=== PATIENT | female | born 1980 | race Caucasian/White ===

== ENCOUNTER 2018-04-29 13:04 | Emergency (ER) | payer BC ==
[2018-04-29] MEDS ORDERED: NS 1,000 ML IV ONE (13:37)
--- NOTE | 2018-04-29 14:02 | CPEKG ---
Heart Rate: 65 RR Interval: 923 P-R Interval: 152 QRSD Interval: 84 QT Interval: 432 QTC Interval: 450 P Cyril: 45 QRS Cyril: 82 T Wave Cyril: 53 EKG Severity - NORMAL ECG - EKG Impression: SINUS RHYTHM Electronically Signed By: Brandon Gruber 02-May-2018 06:55:00
[2018-04-29 14:19] LABS: PLATELET COUNT 272 10^3/uL (150-400)
--- NOTE | 2018-04-29 14:27 | EDPHY ---
H & P Stated Complaint: PROB WITH L EYE(PUPIL ENLARGED )LAST WEEK/[place]/WEAKNESS TODAY Time Seen by Provider: 04/29/18 13:37 HPI/ROS: CHIEF COMPLAINT: Headache, dizziness HISTORY OF PRESENT ILLNESS: 37-year-old previously healthy female presents with headache and dizziness. 1 week ago, she had unequal pupils and left eyelid swelling and was seen in urgent care and by seasonal tax preparer. Eye exam was normal and the unequal pupils were thought secondary to Benadryl. Early this morning, she awoke suddenly because of a sound. She developed flashing lights in her eyes, followed by a headache. The headache was generalized and moderate. She took ibuprofen 800 mg orally and went back to sleep. This morning, she had a persistent headache, and then had a near syncopal episode while walking. She feels dizzy with ambulation, like she might faint. She also has a 6/10 headache. This is not the worst headache ever. She has had much more severe headaches and is currently on a waiting list to be seen at [facility] for headaches. No prior neuro imaging. No recent illness and no recent head injury or chiropractic manipulation. REVIEW OF SYSTEMS: complete 10 point ROS negative except at noted in the HPI - Personal History LMP (Females 10-55): Now Current Tetanus/Diphtheria Vaccine: Yes - Medical/Surgical History Hx Asthma: No Hx Chronic Respiratory Disease: No Hx Diabetes: No Hx Cardiac Disease: No Hx Renal Disease: No Hx Cirrhosis: No Hx Alcoholism: No Hx HIV/AIDS: No Hx Splenectomy or Spleen Trauma: No Other PMH: MIGRAINES (NEVER HAD CT) - Family History Significant Family History: Other (Sister had Hodgkin's disease. No family history of aneurysm or brain tumor) - Social History Smoking Status: Never smoked Alcohol Use: Rarely Drug Use: None Additional Social History: - Physical Exam Exam: General Appearance: Alert, pleasant Eyes: Left pupil 4 mm, right pupil 3 mm, both reactive to light, no conjunctival pallor or injection, EOMI, few beats of horizontal nystagmus with leftward gaze ENT, Mouth: Mucous membranes moist Neck: Normal inspection Respiratory: Lungs are clear to auscultation Cardiovascular: Regular rate and rhythm Gastrointestinal: Abdomen is soft and nontender Neurological: Alert, oriented x3, cranial nerves II through XII intact except for anisocoria, motor 5/5, sensory intact to light touch, dizzy with ambulation Skin: Warm and dry, no rash Extremities: Nontender, no pedal edema Psychiatric: Mood and affect normal Constitutional: Initial Vital Signs Temperature (C) 36.8 C 04/29/18 13:11 Heart Rate 67 04/29/18 13:11 Respiratory Rate 18 04/29/18 13:11 Blood Pressure 119/90 H 04/29/18 13:11 O2 Sat (%) 99 04/29/18 13:11 O2 Delivery Mode Room Air Allergies/Adverse Reactions: No Known Allergies Allergy (Unverified 04/29/18 13:10) Home Medications: Medication Instructions Recorded NK [No Known Home Meds] 04/29/18 Medical Decision Making - Diagnostics Imaging Results: Imaging Impressions Head CT 04/29/18 14:23 Impression: 1. No significant intracranial abnormality seen. The patient is also scheduled for CT angiographic procedure. Head CTA 04/29/18 14:23 Impression: 1. Normal CT angiogram of the neck. 2. Normal CT angiogram of the [place], as detailed above. Note: All calculations were performed using NASCET criteria. Findings discussed with Izabela Hoyos M.D. at 15:43 hour, 04/29/2018. Neck CTA 04/29/18 14:[address]: [address] angiogram of the neck. 2. Normal CT angiogram of the [place], as detailed above. Note: All calculations were performed using NASCET criteria. Findings discussed with Izabela Hoyos M.D. at 15:43 hour, 04/29/2018. Brain MRI 04/29/18 15:48 Impression: Normal MRI of the brain without contrast. ED Course/Re-evaluation: This patient presents with headache, unequal pupils and dizziness. Unclear if this is an atypical migraine headache or more concerning diagnosis such as dissection or aneurysm. CT/CTA of the head and neck ordered and fortunately are unremarkable. Prior to CT scan, the patient received Reglan, Benadryl and Decadron IV. CT scan results discussed with the patient. She currently feels better. She only has a slight headache and the dizziness is mainly resolved. MRI of the brain ordered. If this test is normal, I will plan to discharge the patient home with Neurology follow-up. MRI of the brain is unremarkable. Results discussed with the patient and her . Currently feels much better. Neurologic exam is unchanged. Will discharge home with Neurology follow-up as an outpatient. Differential Diagnosis: Headache including but not limited to subarachnoid hemorrhage, migraine headache , tension headache and infectious causes such as meningitis, pharyngitis and sinusitis. - Data Points Laboratory Results: Laboratory Results 04/29/18 14:03 04/29/18 14:03 04/29/18 04/29/18 04/29/18 14:03 14:03 14:03 WBC 6.56 10^3/uL 10^3/uL (3.80-9.50) RBC 4.81 10^6/uL 10^6/uL (4.18-5.33) Hgb 15.4 g/dL g/dL (12.6-16.3) Hct 44.9 % % (38.0-47.0) MCV 93.3 fL fL (81.5-99.8) MCH 32.0 pg pg (27.9-34.1) MCHC 34.3 g/dL g/dL (32.4-36.7) RDW 11.9 % % (11.5-15.2) Plt Count 272 10^3/uL 10^3/uL (150-400) MPV 9.3 fL fL (8.7-11.7) Neut % (Auto) 64.0 % % (39.3-74.2) Lymph % (Auto) 25.8 % % (15.0-45.0) [place] % (Auto) 8.2 % % (4.5-13.0) Eos % (Auto) 1.2 % % (0.6-7.6) Baso % (Auto) 0.5 % % (0.3-1.7) Nucleat RBC Rel Count 0.0 % % (0.0-0.2) Absolute Neuts (auto) 4.20 10^3/uL 10^3/uL (1.70-6.50) Absolute Lymphs (auto) 1.69 10^3/uL 10^3/uL (1.00-3.00) Absolute Monos (auto) 0.54 10^3/uL 10^3/uL (0.30-0.80) Absolute Eos (auto) 0.08 10^3/uL 10^3/uL (0.03-0.40) Absolute Basos (auto) 0.03 10^3/uL 10^3/uL (0.02-0.10) Absolute Nucleated RBC 0.00 10^3/uL 10^3/uL (0-0.01) Immature Gran % 0.3 % % (0.0-1.1) Immature Gran # 0.02 10^3/uL 10^3/uL (0.00-0.10) Sodium 137 mEq/L mEq/L (135-145) Potassium 3.8 mEq/L mEq/L (3.3-5.0) Chloride 102 mEq/L mEq/L (97-110) Carbon Dioxide 21 mEq/l L mEq/l (22-31) Anion Gap 14 mEq/L mEq/L (8-16) BUN 15 mg/dL mg/dL (7-23) Creatinine 0.8 mg/dL mg/dL (0.6-1.0) Estimated GFR > 60 Glucose 77 mg/dL mg/dL (70-100) Calcium 10.2 mg/dL mg/dL (8.5-10.4) Beta HCG, Qual NEGATIVE Medications Given: Discontinued Medications Dexamethasone (Decadron Injection) 10 mg IVP EDNOW ONE Stop: 04/29/18 14:30 Last Admin: 04/29/18 14:40 Dose: 10 mg Diphenhydramine HCl (Benadryl Injection) 25 mg IVP EDNOW ONE Stop: 04/29/18 14:30 Last Admin: 04/29/18 14:40 Dose: 25 mg Sodium Chloride (Ns) 1,000 mls @ 0 mls/hr IV ONCE ONE; Wide Open PRN Reason: Protocol Stop: 04/29/18 13:38 Last Admin: 04/29/18 14:40 Dose: 1,000 mls Metoclopramide HCl (Reglan Injection) 10 mg IVP EDNOW ONE Stop: 04/29/18 14:30 Last Admin: 04/29/18 14:40 Dose: 10 mg Departure - Departure Disposition: Home, Routine, Self-Care Clinical Impression: Headache Qualifiers: Headache type: unspecified Headache chronicity pattern: acute headache Intractability: not intractable Qualified Code(s): R51 - Headache Condition: Good Instructions: Acute Headache (ED) Additional Instructions: Return for worsening symptoms or any concerns. Referrals: Han,Magnus C, DO [Medical Doctor] - As per Instructions (Call to make an appointment.)
[2018-04-29] MEDS ORDERED: METOCLOPRAMIDE 10 MG/2 ML VIAL IVP ONE (14:29)
[2018-04-29] MEDS ORDERED: DEXAMETHASONE 10 MG/ML VIAL IVP ONE (14:29)
[2018-04-29] MEDS ORDERED: IOPAMIDOL (ISOVUE 370) 100 ML BTL IV ONE (14:42)
[2018-04-29 17:22] VITALS: BP 112/66
== END 2018-04-29 17:22 | disposition home or self-care (01) ==
DX: R51 Headache (principal); E86.9 Volume depletion, unspecified
CPT/HCPCS: 96374; J1100; J1200; J2765; Q9967